=== PATIENT | female | born 1970 | race Hispanic/Latino ===

== ENCOUNTER 2020-11-02 10:03 | Outpatient (CLI) | payer SELFPAY ==
--- NOTE | 2020-11-02 11:52 | RAD ---
EXAM: CHEST TWO VIEWS 11/02/2020 11:49 AM HISTORY: Shortness of breath COMPARISON: None. FINDINGS: Lungs: No acute airspace consolidation. Heart: Normal in size and contour. Pulmonary Vessels: Normal. Costophrenic Angles: Clear. Pneumothorax: None. Osseous Structures: Intact. Additional Findings: Cholecystectomy clips within the right upper quadrant. IMPRESSION: No significant acute intrathoracic disease.
== END 2020-11-02 10:04 | disposition home or self-care (01) ==
LOC: MADRAD 10:03
PROVIDERS: ATTEND Family Medicine
DX: R06.02 Shortness of breath (principal); N30.01 Acute cystitis with hematuria
CPT/HCPCS: 71046